=== PATIENT | male | born 1970 | race African-American/Black ===

== ENCOUNTER 2017-04-29 01:10 | Emergency (ER) | payer OTHER ==
[2017-04-29 01:48] LABS: Hematocrit 47.6 % (42.0-52.0); Mean Platelet Volume 7.7 fL (7.4-10.4); Red Blood Cell (RBC) Count 5.25 mill/uL (4.70-6.10); White Blood Cell (WBC) Count 11.6 thou/uL (4.8-10.8)
[2017-04-29 01:59] LABS: Anion Gap 13 mmol/L (10-20); BUN (Urea Nitrogen) 14 mg/dL (8.9-20.6); Calc. Creatinine Clearance 0 mL/min (70-130); Calcium 9.4 mg/dL (7.8-10.44); Carbon Dioxide 26 mmol/L (22-29); Chloride 101 mmol/L (98-107); Estimated GFR-MDRD 88
[2017-04-29 02:05] LABS: Band 1 % (5-11); Neutrophil 75 % (42-75)
[2017-04-29 02:12] LABS: Troponin I Less than 0.010 ng/mL (< 0.028)
== END 2017-04-29 02:22 | disposition home or self-care (01) ==
LOC: SCSER 01:10
DX: E11.65 Type 2 diabetes mellitus with hyperglycemia (principal); I10 Essential (primary) hypertension; F17.210 Nicotine dependence, cigarettes, uncomplicated; Z79.82 Long term (current) use of aspirin; Z79.899 Other long term (current) drug therapy
CPT/HCPCS: 80048; 82553; 84484; 85025; 93005

== ENCOUNTER 2017-09-16 16:08 | Emergency (ER) | payer OTHER ==
[2017-09-16] MEDS ORDERED: Ondansetron HCl/PF 4 MG/2 ML Vial ONE (16:53)
[2017-09-16] MEDS ORDERED: Famotidine/PF 20 mg/2ml Vial ONE (16:53)
[2017-09-16] MEDS ORDERED: Ketorolac Tromethamine 30 MG/ML VIAL ONE (16:53)
[2017-09-16 16:58] LABS: Anisocytosis SLIGHT = 6-15 cells (100X) (0-5/hpf); Band 4 % (5-11); Eosinophils 3 % (0-10); Hemoglobin 15.7 g/dL (14.0-18.0); Lymphocytes 7 % (21-51); MDiff Complete? YES; Mean Corpuscular HGB CONC 32.5 g/dL (32.0-36.0); Mean Corpuscular Hemoglobin 28.5 pg (27.0-31.0); Mean Corpuscular Volume 87.6 fl (80.0-94.0); Monocytes 10 % (0-10); Neutrophil 70 % (42-75); PLT Morphology Comment Appears Adequate; Platelet Count 275 thou/uL (130-400); RBC Distribution Width 13.2 % (11.5-14.5); Reactive Lymphocytes 4 % (0-10); Target Cells SLIGHT = 2-5 cells (100X) (0-1/hpf)
[2017-09-16 17:06] LABS: CKMB 2.4 ng/mL (0-6.6); Troponin I 0.016 ng/mL (< 0.028)
[2017-09-16 17:29] LABS: ALT (SGPT) 24 U/L (8-55); AST (SGOT) 25 U/L (5-34); Albumin 4.3 g/dL (3.5-5.0); Alkaline Phosphatase 56 U/L (40-150); Anion Gap 15 mmol/L (10-20); BUN (Urea Nitrogen) 14 mg/dL (8.9-20.6); Bilirubin, Total 0.4 mg/dL (0.2-1.2); CK (CPK) 348 U/L (30-200); Calc. Creatinine Clearance 0 mL/min (70-130); Calcium 10.3 mg/dL (7.8-10.44); Carbon Dioxide 25 mmol/L (22-29); Chloride 101 mmol/L (98-107); Estimated GFR-MDRD 90; Globulin 5.4 g/dL (2.4-3.5); Glucose 94 mg/dL (70-105); Lipase 87 U/L (8-78); Potassium 4.5 mmol/L (3.5-5.1); Protein, Total 9.7 g/dL (6.0-8.3); Sodium 136 mmol/L (136-145)
--- NOTE | 2017-09-16 17:33 | RAD ---
PORTABLE CHEST: 09/16/17 HISTORY: Abdominal pain. Lungs appear clear. Heart and mediastinum unremarkable. IMPRESSION: No acute chest finding. POS: [facility]
--- NOTE | 2017-09-16 19:15 | ULT ---
GALLBLADDER ULTRASOUND: 09/16/17 HISTORY: Abdominal pain. Gallbladder appears unremarkable. No evidence of gallstones. Common duct is normal caliber. Images of the liver show increased echogenicity. There is some heterogeneity present which suggest ar eas of fatty sparing. Liver size is upper normal measuring 18 to 19 cm. The pancreas is mostly obscur ed but appears unremarkable as visualized. The right kidney is imaged and appears unremarkable. IMPRESSION: 1. Unremarkable gallbladder ultrasound. 2. Liver is heterogeneous suggesting fatty infiltration and areas of fatty sparing. Recommend co rrelation with liver function tests. POS: [facility]
== END 2017-09-16 19:00 | disposition home or self-care (01) ==
LOC: SCSER 16:08
DX: K29.70 Gastritis, unspecified, without bleeding (principal); E11.9 Type 2 diabetes mellitus without complications; I10 Essential (primary) hypertension; E78.00 Pure hypercholesterolemia, unspecified; I49.9 Cardiac arrhythmia, unspecified; F17.210 Nicotine dependence, cigarettes, uncomplicated; Z79.82 Long term (current) use of aspirin; Z79.899 Other long term (current) drug therapy
CPT/HCPCS: 36415; 71045; 76705; 80053; 82553; 83690; 84484; 85025; 93005; 96361; 96374; 96375; J1885; J2405; S0028

== ENCOUNTER 2017-09-24 00:36 | Emergency (ER) | payer OTHER | END 2017-09-24 00:47 | disposition left against medical advice (07) | LOC: ERS 00:36 | DX: Z53.21 Procedure and treatment not carried out due to patient leaving prior to being seen by health care provider (principal) ==

== ENCOUNTER 2017-09-24 00:57 | Inpatient (IN) | payer OTHER ==
[2017-09-24] MEDS ORDERED: Ondansetron HCl/PF 4 MG/2 ML Vial ONE (01:13)
[2017-09-24] MEDS ORDERED: Morphine 10 MG/ML VIAL ONE (01:13)
[2017-09-24 01:57] LABS: Hemoglobin 15.6 g/dL (14.0-18.0); Mean Corpuscular HGB CONC 32.5 g/dL (32.0-36.0); Mean Corpuscular Hemoglobin 28.9 pg (27.0-31.0); Mean Corpuscular Volume 88.9 fl (80.0-94.0); Mean Platelet Volume 8.8 fL (7.4-10.4); Platelet Count 282 thou/uL (130-400); RBC Distribution Width 12.8 % (11.5-14.5); Red Blood Cell (RBC) Count 5.38 mill/uL (4.70-6.10); White Blood Cell (WBC) Count 13.1 thou/uL (4.8-10.8)
[2017-09-24 02:03] LABS: Band 1 % (5-11); Eosinophils 1 % (0-10); Lymphocytes 9 % (21-51); MDiff Complete? YES; Monocytes 10 % (0-10); Neutrophil 79 % (42-75)
[2017-09-24] MEDS ORDERED: Lidocaine Viscous Sol 2% 15 ml UD Cup ONE (02:06)
[2017-09-24] MEDS ORDERED: Mag-Al Plus 1200 MG/1200 MG/120 MG/30 ML UDCUP ONE (02:06)
[2017-09-24 02:07] LABS: ALT (SGPT) 18 U/L (8-55); AST (SGOT) 25 U/L (5-34); Albumin 4.5 g/dL (3.5-5.0); Alkaline Phosphatase 55 U/L (40-150); Anion Gap 12 mmol/L (10-20); BUN (Urea Nitrogen) 17 mg/dL (8.9-20.6); Bilirubin, Total 0.4 mg/dL (0.2-1.2); Calc. Creatinine Clearance 0 mL/min (70-130); Calcium 10.7 mg/dL (7.8-10.44); Carbon Dioxide 29 mmol/L (22-29); Chloride 99 mmol/L (98-107); Estimated GFR-MDRD 83; Globulin 5.5 g/dL (2.4-3.5); Glucose 105 mg/dL (70-105); Lipase 257 U/L (8-78); Potassium 4.3 mmol/L (3.5-5.1); Sodium 136 mmol/L (136-145)
[2017-09-24] MEDS ORDERED: Morphine 2 MG/ML SYRINGE SLOW IVP PRN ×3 (04:57→12:08)
[2017-09-24] MEDS ORDERED: Ondansetron HCl/PF 4 MG/2 ML Vial IVP PRN ×2 (04:58→11:58)
[2017-09-24 05:47] VITALS: BMI 40.3
[2017-09-24] MEDS: 1/2 NS w/KCL 20 mEq 1,000 ML IV SCH ×2 (05:54→12:23)
[2017-09-24] MEDS: Ketorolac Tromethamine 30 MG/ML VIAL IVP PRN ×2 (09:06→13:00)
--- NOTE | 2017-09-24 10:48 | CT ---
PRELIMINARY REPORT/[facility]/EMERGENTY AFTER-HOURS PROCEDURE EXAM: CT Abdomen and Pelvis With Intravenous Contrast CLINICAL HISTORY: 47 years old, male; Pain; Abdominal pain; Patient HX: Patient presents for evaluation of abdominal pain, patient presents for evaluation of abdominal bloating TECHNIQUE: Axial computed tomography images of the abdomen and pelvis with intravenous contrast. Coronal reformatted images were created and reviewed. CONTRAST: 85 mL of [id number] administered intravenously. COMPARISON: No relevant prior studies available. FINDINGS: Lower thorax: Minimal bibasilar atelectasis. ABDOMEN: Liver: Normal. Gallbladder and bile ducts: Normal. Pancreas: Possible minimally enlarged pancreatic head, with minimal adjacent fat stranding, suggesting acute pancreatitis. Spleen: Normal. Adrenals: Normal. Kidneys and ureters: Normal. Stomach and bowel: Nondilated, gas and fluid-filled transverse colon, which is a nonspecific finding, but can be seen with enteritis/diarrhea. Scattered colonic diverticulosis. Appendix: Appendix is normal. PELVIS: Bladder: Normal. Reproductive: Normal as visualized. ABDOMEN and PELVIS: Intraperitoneal space: Normal. No free air. No significant fluid collection. Bones/joints: No acute fracture. No dislocation. Soft tissues: Normal. Vasculature: Normal. No abdominal aortic aneurysm. Lymph nodes: Normal. IMPRESSION: 1. Nondilated, gas and fluid-filled transverse colon, which is a nonspecific finding, but can be seen with enteritis/diarrhea. 2. Possible minimally enlarged pancreatic head, with minimal adjacent fat stranding, suggesting acute pancreatitis. Recommend correlation with laboratory values. 3. Incidental/non-acute findings are described above. Thank you for allowing us to participate in the care of your patient. Dictated and Authenticated by: Apolinar John MD 09/24/2017 2:36 AM Central Time ([place] & [place]) EMERGENCY/AFTER HOURS EXAMINATION CT ABDOMEN AND PELVIS WITH IV CONTRAST: 09/24/2017 HISTORY: Hematuria and lump in pelvis. COMPARISON: 01/12/2014 IMPRESSION: 1. Suggestion of minimal peripancreatic inflammatory changes adjacent to the pancreatic head. Findi ngs could be related to pancreatitis, but correlation with laboratory values is suggested. 2. A few scattered colonic diverticula are present. 3. No free fluid, fluid collection, or lymphadenopathy in the abdomen or pelvis. Findings are in agreement with the preliminary report by [facility]. POS: [facility]
[2017-09-24] MEDS ORDERED: Acetaminophen 325 MG TAB PO PRN (11:58)
[2017-09-24] MEDS ORDERED: Ondansetron ODT 4 MG TAB PO PRN (11:58)
[2017-09-24] MEDS ORDERED: Dicyclomine 10 MG CAP PO PRN (12:03)
--- NOTE | 2017-09-24 12:29 | HP ---
CHIEF COMPLAINT: Abdominal pain. HISTORY OF PRESENT ILLNESS: This is a 47-year-old gentleman who was recently evaluated for abdominal discomfort, pain, diagnosed as being gastritis and sent home; however, the patient's pain progressiv emily continued to get worse up to 04/14. According to the patient, colicky in nature, constant and ra diating to the back. Patient represented here and biochemical investigation revealed elevated lipase . The patient is now being admitted for further management. The patient is currently n.p.o. on pain medications and IV fluid with improvement in symptoms. PAST MEDICAL HISTORY: Significant for diabetes and hypertension. MEDICATIONS: Reviewed and as documented on [facility]. ALLERGIES: No known drug allergy. FAMILY HISTORY: Not significant related to presenting illness. SOCIAL HISTORY: Denies alcohol or illicit drug use. Patient smokes cigarettes. REVIEW OF SYSTEMS: As documented in the body of the history. All the other systems were reviewed an d found not to be significantly related to presenting illness. PHYSICAL EXAMINATION: GENERAL: The patient was found not to be in any obvious respiratory distress noted with the followin g. VITAL SIGNS: Afebrile with temperature 98, pulse 85, respirations 16, O2 sat 96% with a blood pressu re 96/58. HEENT: Unremarkable. Moist oral mucosa. NECK: Supple, no conjunctival injection or icterus. CARDIOVASCULAR SYSTEM: First and second heart sounds were heard. RESPIRATORY SYSTEM: Clear to auscultation. DIGESTIVE SYSTEM: Revealed vague tenderness on palpation of the mid abdominal area. LYMPHATICS: No peripheral lymphadenopathy. NEUROLOGIC: Alert, oriented. No lateralizing sign. LYMPHATICS: No peripheral lymphadenopathy. IMPRESSION: 1. Acute pancreatitis. 2. Diabetes mellitus type 2. 3. Hypertension, but patient's blood pressure seems to be on the low side at this point. PLAN: 1. The patient to remain n.p.o. to be on IV fluid at least for the next 24 hours to reevaluate the p atient's pancreatic enzyme and lipase. 2. We will hold the patient's antihypertensive medications for now given the labile hemodynamics. 3. Continue IV fluid. 4. Further management to be dependent on the clinical course. 5. The patient was counseled on the need to discontinue tobacco usage.
[2017-09-24] MEDS: Dextrose 5 % And 0.9 % NaCl 1,000 ML IV SCH ×2 (13:58→21:43)
[2017-09-24] MEDS: Famotidine 20 MG TAB PO SCH (20:22)
[2017-09-24] MEDS: Morphine 2 MG/ML SYRINGE SLOW IVP PRN (23:02)
[2017-09-25] MEDS: Dextrose 5 % And 0.9 % NaCl 1,000 ML IV SCH ×3 (01:37→21:10)
[2017-09-25 06:09] LABS: ALT (SGPT) 15 U/L (8-55); AST (SGOT) 22 U/L (5-34); Alkaline Phosphatase 51 U/L (40-150); Anion Gap 11 mmol/L (10-20); BUN (Urea Nitrogen) 17 mg/dL (8.9-20.6); Bilirubin, Total 0.5 mg/dL (0.2-1.2); Calc. Creatinine Clearance 146 mL/min (70-130); Calcium 9.7 mg/dL (7.8-10.44); Carbon Dioxide 26 mmol/L (22-29); Chloride 103 mmol/L (98-107); Estimated GFR-MDRD Greater than 90; Globulin 4.8 g/dL (2.4-3.5); Glucose 74 mg/dL (70-105); Lipase 86 U/L (8-78); Potassium 4.3 mmol/L (3.5-5.1); Protein, Total 8.8 g/dL (6.0-8.3); Sodium 136 mmol/L (136-145)
[2017-09-25] MEDS: Morphine 2 MG/ML SYRINGE SLOW IVP PRN ×2 (08:20→23:13)
[2017-09-25] MEDS: Famotidine 20 MG TAB PO SCH ×2 (08:21→21:10)
[2017-09-25] MEDS: Metoprolol Tartrate 25 MG TAB PO SCH (08:22)
[2017-09-25] MEDS ORDERED: Lisinopril 20 MG TAB PO SCH (09:00)
--- NOTE | 2017-09-25 14:24 | PDOC.PN ---
- Subjective Encounter Start Date: 09/25/17 Encounter Start Time: 14:23 Subjective: Seen and examined feeling better --lipase down - Objective Resuscitation Status: Resuscitation Status FULL:Full Resuscitation Vital Signs & Weight: Vital Signs (12 hours) Temp Pulse Resp BP Pulse Ox 09/25/17 08:00 98.2 F 71 16 09/25/17 07:51 98.2 F 71 16 126/77 97 09/25/17 07:47 97.7 F 80 16 105/69 95 09/25/17 04:00 97.7 F 75 20 113/75 95 Weight Weight 265 lb I&O: 09/24/17 09/25/17 09/26/17 06:59 06:59 06:59 Intake Total 1500 Balance 1500 Result Diagrams: 09/24/17 01:45 09/25/17 05:49 Additional Labs: Accuchecks 09/25/17 09/25/17 09/24/17 12:01 04:33 20:46 POC Glucose 90 83 89 09/24/17 16:54 POC Glucose 95 Phys Exam - Physical Examination Constitutional: NAD HEENT: PERRLA, moist MMs, sclera anicteric, TM's clear Neck: no nodes, no JVD, supple, full ROM Respiratory: no wheezing, no rales, no rhonchi, clear to auscultation bilateral Cardiovascular: RRR, no significant murmur, no rub Gastrointestinal: soft, non-tender, no distention, positive bowel sounds Musculoskeletal: no edema, pulses present Dx/Plan (1) Hypertension Code(s): I10 - ESSENTIAL (PRIMARY) HYPERTENSION Status: Acute (2) Acute pancreatitis Code(s): K85.90 - ACUTE PANCREATITIS WITHOUT NECROSIS OR INFECTION, UNSP Status: Acute (3) Type II diabetes mellitus, uncontrolled Status: Acute - Plan D/c NPO -: Start clears and advance diet -: Dispo planning * .
[2017-09-26] MEDS: Dextrose 5 % And 0.9 % NaCl 1,000 ML IV SCH (05:18)
[2017-09-26] MEDS: Metoprolol Tartrate 25 MG TAB PO SCH (08:13)
[2017-09-26] MEDS: Famotidine 20 MG TAB PO SCH (08:13)
[2017-09-26 10:16] LABS: Cardiac Risk 4.2 (Less than 4.5)
[2017-09-26 11:31] VITALS: BP 132/77; TEMP 98.1
--- NOTE | 2017-09-26 15:36 | DIS ---
DATE OF ADMISSION: 09/24/2017 DATE OF DISCHARGE: 09/26/2017 CONDITION AT THE TIME OF DISCHARGE: Stable and improved. DISCHARGE DIAGNOSES: 1. Acute pancreatitis, possibly secondary to past gallbladder stone. 2. Type 2 diabetes mellitus. 3. Hypertension. 4. Obesity with BMI of 40.3. PRIMARY CARE PHYSICIAN: Dr. Darrick Earl. DISCHARGE MEDICATIONS: Remain the same as the home medication, and as follows: Lopressor 12.5 mg da jarod, vardenafil 1.5 mg as needed, omeprazole 40 mg p.o. b.i.d., metformin 500 b.i.d., lisinopril 20 m g daily, aspirin 81 mg daily. PROCEDURES DONE IN THE HOSPITAL: CT scan of the abdomen and pelvis, which showed mild pancreatitis w ithout any obvious gallbladder or CBD pathology. CONSULTATIONS: None. HISTORY OF PRESENT ILLNESS: Mr. Barnes is a very pleasant 47-year-old -[place] male with pas t medical history of diabetes and hypertension, who presented to the emergency room with complaints o f gradually worsening abdominal pain. Upon presentation, he was hemodynamically stable; however, his lab work showed elevated lipase. He was admitted with a presumptive diagnosis of pancreatitis. His lactic acid was within normal limit. His serum chemistries and CBC was unremarkable. Please see ad mission history and physical for further details. HOSPITAL COURSE: The patient was treated with IV fluids, n.p.o. status, and was gradually progressed to diet when his symptoms improved. His lipase trended down from 257 to normal at 74 this morning. He is back on his full diet and has no complaints of abdominal pain, nausea, vomiting. His fluids h ave been tapered off and he is walking in the hallways. He has no abdominal pain, diarrhea, or const ipation. At this time, he is hemodynamically stable and will be discharged. He was seen and examined prior to discharge. Lipid panel was checked, which was unremarkable. PHYSICAL EXAMINATION: This morning include, VITAL SIGNS: Temperature 98.1, pulse of 86, respirations 16, saturating 94% on room air, blood press ure 132/77. GENERAL: No acute distress, awake, alert, and oriented x3. ABDOMEN: Soft, nontender, nondistended. CHEST: Clear to auscultation. CARDIOVASCULAR: Rate and rhythm is regular. LABORATORY DATA: As above. Discharge plan was discussed with the patient, who verbalized understanding. He is instructed to fol low up with his primary care physician in 2-3 weeks. He is instructed on low fat diet. Total time spent in the discharge of this patient, 32 minutes.
--- NOTE | 2017-10-06 14:39 | EKG ---
Test Reason : Blood Pressure : / mmHG Vent. Rate : 090 BPM Atrial Rate : 090 BPM P-R Int : 126 ms QRS Dur : 078 ms QT Int : 352 ms P-R-T Axes : 023 055 030 degrees QTc Int : 430 ms Normal sinus rhythm Normal ECG Confirmed by MARAH ANDERSON DO ([id number]), editor newspaper MARCIN ROACH ([id number]) on 10/06/2017 2:38:48 PM Referred By: NADINE Confirmed By:MARAH ANDERSON DO
== END 2017-09-26 14:15 | disposition home or self-care (01) | DRG 439 ==
LOC: SCSER 00:57 → T4-A 04:03
PROVIDERS: ADMIT Internal Medicine Infectious Disease; ATTEND Internal Medicine Infectious Disease
DX: K85.90 Acute pancreatitis without necrosis or infection, unspecified (principal); Z68.41 Body mass index [BMI] 40.0-44.9, adult; E66.01 Morbid (severe) obesity due to excess calories; E11.9 Type 2 diabetes mellitus without complications; I10 Essential (primary) hypertension; Z79.84 Long term (current) use of oral hypoglycemic drugs; Z79.82 Long term (current) use of aspirin; F41.9 Anxiety disorder, unspecified; E78.5 Hyperlipidemia, unspecified
CPT/HCPCS: 36415; 36416; 74177; 80053; 80061; 83605; 83690; 85025; 93005; 96361; 96374; 96375; A4216; J1885; J2270; J2405

== ENCOUNTER 2018-08-16 20:41 | Emergency (ER) | payer OTHER ==
[2018-08-16] MEDS ORDERED: Ketorolac Tromethamine 30 MG/ML VIAL ONE (21:57)
== END 2018-08-16 22:33 | disposition home or self-care (01) ==
LOC: SCSER 20:41
DX: J11.1 Influenza due to unidentified influenza virus with other respiratory manifestations (principal); E11.9 Type 2 diabetes mellitus without complications; E78.5 Hyperlipidemia, unspecified; I10 Essential (primary) hypertension; F17.210 Nicotine dependence, cigarettes, uncomplicated; Z79.899 Other long term (current) drug therapy; Z79.84 Long term (current) use of oral hypoglycemic drugs
CPT/HCPCS: 96372; J1885

== ENCOUNTER 2018-09-27 18:00 | Outpatient (CLI) | payer OTHER | END 2018-09-27 18:01 | disposition home or self-care (01) | LOC: SLEEPLAB 18:00 | PROVIDERS: ATTEND Family Medicine | DX: G47.33 Obstructive sleep apnea (adult) (pediatric) (principal); R53.83 Other fatigue; F41.9 Anxiety disorder, unspecified; R06.83 Snoring; I10 Essential (primary) hypertension; E11.9 Type 2 diabetes mellitus without complications; G47.00 Insomnia, unspecified; G47.10 Hypersomnia, unspecified; E66.9 Obesity, unspecified; Z68.38 Body mass index [BMI] 38.0-38.9, adult | CPT/HCPCS: 95806 ==

== ENCOUNTER 2019-04-02 00:42 | Emergency (ER) | payer OTHER ==
[2019-04-02] MEDS ORDERED: Lidocaine 1% w/Epinephrine 1:100K 20 ML VIAL ONE (01:24)
[2019-04-02 01:30] LABS: Anion Gap 15 mmol/L (10-20); BUN (Urea Nitrogen) 24 mg/dL (8.9-20.6); Calc. Creatinine Clearance 0 mL/min (70-130); Calcium 9.2 mg/dL (7.8-10.44); Carbon Dioxide 23 mmol/L (22-29); Chloride 100 mmol/L (98-107); Estimated GFR-MDRD 64; Glucose 408 mg/dL (70-105); Potassium 4.3 mmol/L (3.5-5.1); Sodium 134 mmol/L (136-145)
[2019-04-02 01:31] LABS: Eosinophils 2 % (0-10); Hemoglobin 13.6 g/dL (14.0-18.0); Lymphocytes 11 % (21-51); MDiff Complete? YES; Mean Corpuscular HGB CONC 33.6 g/dL (32.0-36.0); Mean Corpuscular Hemoglobin 29.7 pg (27.0-31.0); Mean Corpuscular Volume 88.5 fL (78.0-98.0); Mean Platelet Volume 9.8 fL (7.4-10.4); Monocytes 7 % (0-10); Neutrophil 80 % (42-75); Platelet Count 210 thou/uL (130-400); RBC Distribution Width 13.1 % (11.5-14.5); Red Blood Cell (RBC) Count 4.59 mill/uL (4.70-6.10); White Blood Cell (WBC) Count 15.6 thou/uL (4.8-10.8)
[2019-04-02] MEDS ORDERED: Piperacillin/Tazobactam 3.375 GM VIAL ONE (02:01)
[2019-04-02] MEDS ORDERED: Sodium Chloride 0.9% 100 ML ONE (02:02)
[2019-04-02] MEDS ORDERED: Insulin Regular 300 UNITS/3 ML VIAL ONE (02:55)
--- NOTE | 2019-04-02 06:18 | CT ---
CT PELVIS WITH CONTRAST: HISTORY: The patient presents for evaluation of swelling and pain. History of a left thigh boil, which spontan eously ruptured and has drained and is feeling better. The patient felt a second area earlier tonight with pain and tenderness. FINDINGS: The visualized intrapelvic contents are unremarkable. No fluid collections. No abscess. In the perineal area there is inflammatory change within the subcutaneous tissue. This is more pronou nced along the medial aspect of the right buttock area. There is no defined abscess collection seen. No other findings. IMPRESSION: Inflammatory changes in the subcutaneous fat in the buttocks region without any abscess. POS: [facility]
== END 2019-04-02 03:31 | disposition home or self-care (01) ==
LOC: SCSER 00:42
DX: L03.317 Cellulitis of buttock (principal); E11.9 Type 2 diabetes mellitus without complications; E78.5 Hyperlipidemia, unspecified; I10 Essential (primary) hypertension; F17.210 Nicotine dependence, cigarettes, uncomplicated; Z79.84 Long term (current) use of oral hypoglycemic drugs; Z79.899 Other long term (current) drug therapy
CPT/HCPCS: 36415; 36416; 72193; 80048; 83605; 85025; 87040; 96365; 96367; J1815; J2001; J2543; J3370; J3490

== ENCOUNTER 2019-05-19 09:22 | Outpatient (CLI) | payer OTHER ==
--- NOTE | 2019-05-19 10:04 | RAD ---
XR Shoulder Lt 3 View STANDARD HISTORY: Left-sided pain FINDINGS: No fracture or dislocation is identified. There are degenerative changes in the acromioclavicular adam nt.
== END 2019-05-19 09:23 | disposition home or self-care (01) ==
LOC: SCSRAD 09:22
PROVIDERS: ATTEND Family Medicine
DX: M25.512 Pain in left shoulder (principal); M19.012 Primary osteoarthritis, left shoulder

== ENCOUNTER 2019-12-07 23:18 | Emergency (ER) | payer OTHER, SELFPAY ==
[2019-12-07] MEDS ORDERED: Morphine 4 MG/ML VIAL ONE (23:38)
[2019-12-07] MEDS ORDERED: Ondansetron PF 4 MG/2 ML Vial ONE (23:39)
[2019-12-07 23:56] LABS: #Basophils 0.1 thou/uL (0.0-0.2); #Eosinphils 0.6 thou/uL (0.0-0.7); #Lymphocytes 1.9 thou/uL (1.20-3.40); #Monocytes 1.6 thou/uL (0.11-0.59); #Neutrophils 9.2 thou/uL (1.40-6.50); %Basophils 0.4 % (0.0-1.0); %Eosinophils 4.2 % (0.0-10.0); %Lymphocytes 14.2 % (21.0-51.0); %Monocytes 11.9 % (0.0-10.0); %Neutrophils 69.3 % (42.0-75.0); Hemoglobin 15.3 g/dL (14.0-18.0); Mean Corpuscular HGB CONC 32.9 g/dL (32.0-36.0); Mean Corpuscular Hemoglobin 29.6 pg (27.0-31.0); Mean Corpuscular Volume 89.9 fL (78.0-98.0); Mean Platelet Volume 8.7 fL (7.4-10.4); Platelet Count 269 thou/uL (130-400); RBC Distribution Width 12.9 % (11.5-14.5); Red Blood Cell (RBC) Count 5.17 mill/uL (4.70-6.10); White Blood Cell (WBC) Count 13.2 thou/uL (4.8-10.8)
[2019-12-08 00:09] LABS: ALT (SGPT) 23 U/L (8-55); AST (SGOT) 20 U/L (5-34); Albumin 4.2 g/dL (3.5-5.0); Alkaline Phosphatase 67 U/L (40-110); Anion Gap 15 mmol/L (10-20); BUN (Urea Nitrogen) 14 mg/dL (8.9-20.6); Bilirubin, Total 0.5 mg/dL (0.2-1.2); Calc. Creatinine Clearance 0 mL/min (70-130); Calcium 9.8 mg/dL (7.8-10.44); Carbon Dioxide 22 mmol/L (22-29); Chloride 100 mmol/L (98-107); Estimated GFR-MDRD 82; Globulin 5.1 g/dL (2.4-3.5); Glucose 143 mg/dL (70-105); Lipase 172 U/L (8-78); Protein, Total 9.3 g/dL (6.0-8.3); Sodium 133 mmol/L (136-145)
[2019-12-08] MEDS ORDERED: HYDROcodone/Acetaminophen 5/325 mg Tablet ONE (01:35)
--- NOTE | 2019-12-08 08:30 | CT ---
PRELIMINARY REPORT/[facility]/EMERGENCY AFTER HOURS PROCEDURE CT abdomen and pelvis with contrast: Comparison: None Findings: Air-trapping or ill-defined patchy groundglass opacity in the lung bases. No hydronephrosis or symptomatic urinary calculus. Diffuse fatty infiltration of the liver. There may be mild edema in the fat around the head and neck of the pancreas. The margins are slightly ill-defined. Normal gallbladder. No biliary ductal dilatation. The solid organs and vasculature are otherwise normal. No bowel obstruction, free fluid, free air, abscess or diverticulitis. Normal appendix. The reproductive organs and urinary bladder are unremarkable. Impression: Possible mild acute pancreatitis. Correlate with clinical findings. Enlarged liver with diffuse fatty infiltration of liver. Correlate clinically for hepatitis. No other cause for symptoms identified. ELECTRONICALLY SIGNED BY: Darnell Winn MD Dec 08, 2019 1:17:49 AM CDT This report is intended for review by the ordering physician only, in accordance of law. If you recei ve this report in error, please call [facility] at [phone]. FINAL REPORT CT ABDOMEN AND PELVIS WITH IV CONTRAST: HISTORY: Epigastric pain radiating to the back. I agree with the preliminary report given by Dr. Darnell Winn of [facility].
--- NOTE | 2019-12-10 11:56 | EKG ---
Test Reason : EPIGASTRIC PAIN Blood Pressure : / mmHG Vent. Rate : 109 BPM Atrial Rate : 109 BPM P-R Int : 134 ms QRS Dur : 086 ms QT Int : 330 ms P-R-T Axes : 038 032 014 degrees QTc Int : 444 ms Sinus tachycardia Otherwise normal ECG Confirmed by CECI NOVAK ([id number]), general expeditor PAT BUSTILLO ([id number]) on 12/10/2019 11:55:51 AM Referred By: Confirmed By:CECI NOVAK
== END 2019-12-08 02:35 | disposition home or self-care (01) ==
LOC: ERS 23:18
DX: K85.90 Acute pancreatitis without necrosis or infection, unspecified (principal); E11.9 Type 2 diabetes mellitus without complications; E78.5 Hyperlipidemia, unspecified; I10 Essential (primary) hypertension; F17.210 Nicotine dependence, cigarettes, uncomplicated; Z79.84 Long term (current) use of oral hypoglycemic drugs; Z79.82 Long term (current) use of aspirin; Z79.899 Other long term (current) drug therapy
CPT/HCPCS: 74177; 80053; 83690; 84484; 85025; 93005; 96361; 96374; 96375; J2270; J2405

== ENCOUNTER 2020-03-29 08:06 | Outpatient (CLI) | payer OTHER ==
--- NOTE | 2020-03-29 08:49 | MMO ---
Bilateral MAMMO Bilat Diag [facility]. CLINICAL HISTORY: Patient is 49 years old and is seen for diagnostic exam and palpable abnormality in the right axilla. The patient has the following family history of breast cancer: maternal aunt. VIEWS: The views performed were: bilateral craniocaudal with tomosynthesis; bilateral mediolateral oblique with tomosynthesis; bilateral mediolateral with tomosynthesis; and right exaggerated craniocaudal with tomosynthesis. FILMS COMPARED: The present examination has been compared to a prior imaging study performed at [facility] on 03/29/2020. This study has been interpreted with the assistance of computer-aided detection. MAMMOGRAM FINDINGS: The breasts are almost entirely fat. Benign calcifications are noted bilaterally. Bilateral axillary lymph nodes are seen. The region of palpable concern at 10:00 right breast is a lymph node. Please see US report. There are no suspicious masses, suspicious calcifications, or new areas of architectural distortion. IMPRESSION: THERE IS NO MAMMOGRAPHIC EVIDENCE OF MALIGNANCY. ANY DECISION TO BIOPSY SHOULD BE BASED ON CLINICAL ASSESSMENT. THE RESULTS OF THIS EXAM WERE SENT TO THE PATIENT. ACR BI-RADS Category 2 - Benign finding MAMMOGRAPHY NOTE: 1. A negative mammogram report should not delay a biopsy if a dominant of clinically suspicious mass is present. 2. Approximately 10% to 15% of breast cancers are not detected by mammography. 3. Adenosis and dense breasts may obscure an underlying neoplasm. Reported by: MARQUISE FREEMAN MD Electonically Signed: [id number]
--- NOTE | 2020-03-29 10:17 | ULT ---
LIMITED RIGHT BREAST ULTRASOUND: Date: 03/29/2020 HISTORY: 49-year-old male with palpable mass in the right breast. FINDINGS/IMPRESSION: Ultrasound of the region of palpable concern at the 10 o'clock position of the right breast, 6.0 cm f rom the nipple, demonstrates a nonshadowing, well-circumscribed, solid, hypoechoic mass with echogeni c hilum consistent with lymph node measuring up to 1.2 cm. Multiple similar masses are also seen in the right axilla consistent with lymph nodes, the largest me asuring about 2.7 cm. Correlation was made with the mammogram of the same date. Any decision to biopsy should be based on clinical suspicion. POS: [facility]
== END 2020-03-29 08:07 | disposition home or self-care (01) ==
LOC: BICMAMMO 08:06
PROVIDERS: ATTEND Family Medicine
DX: N63.11 Unspecified lump in the right breast, upper outer quadrant (principal)
CPT/HCPCS: 77066; G0279

== ENCOUNTER 2020-08-12 23:36 | Emergency (ER) | payer SELFPAY ==
[2020-08-13 00:11] LABS: Hemoglobin 14.6 g/dL (14.0-18.0); Mean Corpuscular HGB CONC 32.2 g/dL (32.0-36.0); Mean Platelet Volume 8.2 fL (7.4-10.4); Platelet Count 283 thou/uL (130-400); RBC Distribution Width 12.6 % (11.5-14.5); Red Blood Cell (RBC) Count 5.04 mill/uL (4.70-6.10); White Blood Cell (WBC) Count 11.4 thou/uL (4.8-10.8)
[2020-08-13 00:27] LABS: Eosinophils 1 % (0-10); Lymphocytes 17 % (21-51); MDiff Complete? YES; Monocytes 5 % (0-10); Neutrophil 77 % (42-75); Platelet Morphology Comment Appears Adequate; RBC Morphology Normal
[2020-08-13 00:31] LABS: ALT (SGPT) 30 U/L (8-55); AST (SGOT) 29 U/L (5-34); Alkaline Phosphatase 59 U/L (40-110); Anion Gap 15 mmol/L (10-20); BUN (Urea Nitrogen) 18 mg/dL (8.9-20.6); Bilirubin, Total 0.2 mg/dL (0.2-1.2); Calc. Creatinine Clearance 0 mL/min (70-130); Calcium 9.8 mg/dL (7.8-10.44); Carbon Dioxide 21 mmol/L (22-29); Chloride 104 mmol/L (98-107); Globulin 4.7 g/dL (2.4-3.5); Glucose 78 mg/dL (70-105); Potassium 4.5 mmol/L (3.5-5.1); Protein, Total 8.7 g/dL (6.0-8.3); Sodium 135 mmol/L (136-145)
[2020-08-13 01:59] LABS: Bacteria/HPF None Seen HPF (None Seen); Bilirubin Negative (Negative); Blood, Urine Negative (Negative); Clarity Clear (Clear); Glucose, Urine (Dipstick) Normal (Negative); Ketone, Urine Negative (Negative); Leukocyte 250 Leu/uL (Negative); Mucous/LPF Rare LPF (<2+); Nitrite Negative (Negative); Protein, Urine (Dipstick) 20 mg/dL (Neg-Trace); RBC/HPF 0-3 HPF (0-3); Specific Gravity, Urine 1.016 (1.002-1.036); Squamous Epithelial 0-3 HPF (0-3); Urobilinogen Normal mg/dL (Less than 2); WBC/HPF 21-50 HPF (0-3); pH, Urine 5.5 (5.0-9.0)
--- NOTE | 2020-08-13 07:47 | CT ---
PRELIMINARY REPORT/[facility]/EMERGENCY AFTER HOURS PROCEDURE EXAM: CT Abdomen and Pelvis with Intravenous Contrast CLINICAL HISTORY: PT REPORTS ABDOMINAL PAIN ONSET 2 DAYS AGO, WORSENING TODAY. UNRELIEVED BY ENEMA TONIGHT TECHNIQUE: Axial computed tomography images of the abdomen and pelvis with intravenous contrast. CONTRAST: With; ISOVUE 370,80mL COMPARISON: 12/08/19. FINDINGS: LUNG BASES: No basilar airspace consolidation or pleural effusion. LIVER: Unremarkable. GALLBLADDER AND BILE DUCTS: Unremarkable. No calcified stone. No ductal dilation. PANCREAS: Unremarkable. SPLEEN: Unremarkable. ADRENAL GLANDS: Unremarkable. KIDNEYS, URETERS, AND BLADDER: Unremarkable. No hydronephrosis or nephrolithiasis. No ureteral or bladder calculi. STOMACH AND BOWEL: No obstruction. No wall thickening. No CT evidence of colitis or acute diverticulitis. APPENDIX: No CT evidence for appendicitis. PERITONEUM: No free fluid. No free air. LYMPH NODES: No lymphadenopathy. REPRODUCTIVE: Unremarkable as visualized. VASCULATURE: No aortic aneurysm. BONES: No fracture or suspicious osseous abnormality. ABDOMINAL WALL AND SOFT TISSUES: Unremarkable. IMPRESSION: No acute intra-abdominal or pelvic abnormality. ELECTRONICALLY SIGNED BY: Renzo Land MD Aug 13, 2020 2:46:26 AM APPLICATION MANAGER This report is intended for review by the ordering physician only, in accordance of law. If you recei ve this report in error, please call [facility] at [phone]. FINAL REPORT EXAM: CT ABDOMEN AND PELVIS HISTORY: Abdominal pain, onset 2 days ago. COMPARISON: 12/08/2019 Procedure: Multiple contiguous axial images were obtained and a CT of the abdomen and pelvis with IV contrast. C oronal reformats were performed. FINDINGS: Lower Chest: Patchy groundglass opacities, nonspecific. Correlate for pulmonary edema Vessels: Normal caliber aorta. Heart: Normal heart size Abdomen: Portal vein:Patent Gallbladder: No calcified gallstones. Normal caliber wall. Liver: Diffuse hypoattenuation due to hepatic steatosis Pancreas: within normal limits. Spleen: within normal limits. Adrenals: within normal limits. Kidneys: Symmetric enhancement. No obstructive uropathy. Peritoneum: No ascites or free air, no fluid collection. Bowel: Limited evaluation due to the lack of oral contrast administration. No evidence of bowel obstr uction. Ileocecal junction is unremarkable. Normal caliber appendix. Scattered fecal material in a nondistended, nondilated colon. Mesentery and Retroperitoneum: No enlarged mesenteric or retroperitoneal lymph nodes. Abdominal Wall: within normal limits. Pelvis: Reproductive Organs: Reproductive organs are unremarkable. Pelvis: No mass, lymphadenopathy, free air or free fluid. Bladder: within normal limits. Bones: within normal limits. IMPRESSION: 1. This report is in agreement with initial report by [facility]. 2. No acute abnormality in the abdomen or pelvis. Transcribed Date/Time: 08/13/2020 8:14 AM
[2020-08-13] MEDS ORDERED: Iopamidol 370 76% 100 ML VIAL ONE (09:58)
== END 2020-08-13 04:03 | disposition home or self-care (01) ==
LOC: ERS 23:36
DX: R10.12 Left upper quadrant pain (principal); E11.9 Type 2 diabetes mellitus without complications; E78.5 Hyperlipidemia, unspecified; I10 Essential (primary) hypertension; F17.210 Nicotine dependence, cigarettes, uncomplicated; Z79.899 Other long term (current) drug therapy; Z79.82 Long term (current) use of aspirin; Z79.84 Long term (current) use of oral hypoglycemic drugs
CPT/HCPCS: 36415; 74177; 80053; 81003; 81015; 83690; 85025; Q9967